=== PATIENT | female | born 1950 | race Caucasian/White ===

== ENCOUNTER 2018-03-02 08:59 | Outpatient (REF) | payer OTHER, SELFPAY ==
[2018-03-02 14:08] LABS: ALT 33 U/L (12-78); AST 20 U/L (15-37); Albumin 3.6 g/dL (3.4-5.0); Alkaline Phosphatase 69 U/L (46-116); Anion Gap 6.7 mmol/L (3-11); BUN 24 mg/dL (7-18); Bilirubin, Total 0.3 mg/dL (0.2-1.0); CO2 30.3 mmol/L (21.0-32.0); CREATININE 0.84 mg/dL (0.55-1.02); Chloride 105 mmol/L (98-107); Cholesterol 182 mg/dL (50-200); Glucose 105 mg/dL (70-100); HDL Cholesterol 47 mg/dL (40-60); LDL CHOLESTEROL 122 mg/dL (<100); Potassium 4.3 mmol/L (3.5-5.1); Sodium 142 mmol/L (136-145); Triglyceride 89 mg/dL (30-150)
== END 2018-03-02 09:19 ==
LOC: NCHCN 08:59
PROVIDERS: PCP Family Medicine; Visit Provider Family Medicine
DX: E78.5 Hyperlipidemia, unspecified (principal)
CPT/HCPCS: 80053; 80061; 83721

== ENCOUNTER 2018-03-22 01:41 | Outpatient (CLI) | payer OTHER, SELFPAY ==
--- NOTE | 2018-03-22 13:33 | DI.DEXA_ITS ---
SYMPTOMS/DIAGNOSIS: SCREENING FOR OSTEOPOROSIS IN POSTMENOPAUSAL WOMAN, Z78.0 DEXA SCAN: DEXA scan was performed according to the usual protocol. The findings for left hip scanning are T score -1.9 with left femoral neck T score -1.6. The findings for lumbar spine scanning are T score -1.4. The findings for left forearm scanning are T score -1.5. CONCLUSION: Findings consistent with osteopenia according to the WHO criteria. Please note that the lateral vertebral scanogram shows no evidence of a vertebral compression fracture.
== END 2018-03-22 02:01 ==
PROVIDERS: PCP Family Medicine; Visit Provider Family Medicine
DX: M85.88 Other specified disorders of bone density and structure, other site (principal); Z78.0 Asymptomatic menopausal state
CPT/HCPCS: 77080

== ENCOUNTER 2019-07-10 19:24 | Outpatient (REF) | payer OTHER, SELFPAY ==
[2019-07-10 21:47] LABS: ALT 38 U/L (14-59); AST 21 U/L (15-37); Albumin 3.8 g/dL (3.4-5.0); Alkaline Phosphatase 61 U/L (46-116); Anion Gap 7.4 mmol/L (3-11); BUN 24 mg/dL (7-18); Bilirubin, Total 0.3 mg/dL (0.2-1.0); CO2 26.6 mmol/L (21.0-32.0); CREATININE 0.92 mg/dL (0.55-1.02); Calcium 9.2 mg/dL (8.5-10.1); Calculated LDL 109 mg/dL (<100); Chloride 106 mmol/L (98-107); Cholesterol 176 mg/dL (<200); Glucose 97 mg/dL (74-106); HDL Cholesterol 46 mg/dL (40-60); Potassium 4.9 mmol/L (3.5-5.1); Sodium 140 mmol/L (136-145); Triglyceride 108 mg/dL (<150)
== END 2019-07-10 19:44 ==
LOC: NCHCN 19:24
PROVIDERS: PCP Family Medicine; Visit Provider Family Medicine
DX: E78.5 Hyperlipidemia, unspecified (principal)
CPT/HCPCS: 80053; 80061

== ENCOUNTER 2019-08-08 01:56 | Outpatient (CLI) | payer OTHER, SELFPAY ==
--- NOTE | 2019-08-08 | DI.MAMMO_ITS ---
EXAM: MG MAMMO SCREENING CLINICAL HISTORY: SCREENING, Z12.31 TECHNIQUE: Mammograms were interpreted according to the usual protocol including computer analysis w [employer] CAD system, tomosynthesis and C-view imaging. COMPARISON: FINDINGS: The breasts are of moderate density with fairly symmetrical distribution of fibroglandular tissue. N o dominant mass or clumped microcalcification is identified in either breast. The current examinatio n is compared with previous examinations including July 2017 and there has been no gross interval david nge in appearance comparison with previous studies. IMPRESSION: No specific evidence of malignancy at this time. Routine screening examinations are suggested at yea rly intervals in this age group according to the ACS ACR guidelines. BI-RADS Category 1 - Negative Breast Density - Category B - Scattered areas of fibroglandular density
== END 2019-08-08 02:16 ==
PROVIDERS: PCP Family Medicine; Visit Provider Family Medicine
DX: Z12.31 Encounter for screening mammogram for malignant neoplasm of breast (principal)
CPT/HCPCS: 77063; 77067

== ENCOUNTER 2020-07-10 08:32 | Outpatient (REF) | payer OTHER, SELFPAY ==
[2020-07-10 13:57] LABS: ALT 26 U/L (14-59); AST 12 U/L (15-37); Albumin 3.8 g/dL (3.4-5.0); Alkaline Phosphatase 61 U/L (46-116); Anion Gap 7.4 mmol/L (3-11); BUN 22 mg/dL (7-18); Bilirubin, Total 0.4 mg/dL (0.2-1.0); CO2 27.6 mmol/L (21.0-32.0); CREATININE 0.9 mg/dL (0.55-1.02); Calcium 9.2 mg/dL (8.5-10.1); Calculated LDL 99 mg/dL (<100); Chloride 106 mmol/L (98-107); Cholesterol 172 mg/dL (<200); Glucose 104 mg/dL (74-106); HDL Cholesterol 48 mg/dL (40-60); Potassium 4.8 mmol/L (3.5-5.1); Sodium 141 mmol/L (136-145); Total Protein 7.2 g/dL (6.4-8.2); Triglyceride 126 mg/dL (<150)
== END 2020-07-10 08:33 | disposition home or self-care (01) ==
LOC: NCHCN 08:32
PROVIDERS: PCP Family Medicine; Visit Provider Family Medicine
DX: I10 Essential (primary) hypertension (principal); E78.5 Hyperlipidemia, unspecified
CPT/HCPCS: 80053; 80061

== ENCOUNTER 2021-01-01 15:50 | Outpatient (REF) | payer MEDICARE, SELFPAY | END 2021-01-01 15:51 | disposition home or self-care (01) | LOC: NCHCN 15:50 | PROVIDERS: PCP Family Medicine; Visit Provider Family Medicine | DX: R30.0 Dysuria (principal); R35.0 Frequency of micturition | CPT/HCPCS: 87086 ==

== ENCOUNTER 2021-07-26 09:02 | Outpatient (REF) | payer MEDICARE, SELFPAY ==
[2021-07-26 15:56] LABS: ALT 32 U/L (14-59); AST 16 U/L (15-37); Albumin 3.8 g/dL (3.4-5.0); Alkaline Phosphatase 64 U/L (46-116); BUN 24 mg/dL (7-18); Bilirubin, Total 0.4 mg/dL (0.2-1.0); CREATININE 0.9 mg/dL (0.55-1.02); Calcium 9.3 mg/dL (8.5-10.1); Chloride 107 mmol/L (98-107); Glucose 113 mg/dL (74-106); Potassium 5.2 mmol/L (3.5-5.1); Sodium 141 mmol/L (136-145)
[2021-07-26 16:37] LABS: Calculated LDL 114 mg/dL (<100); Cholesterol 187 mg/dL (<200); HDL Cholesterol 45 mg/dL (40-60); Triglyceride 141 mg/dL (<150)
== END 2021-07-26 09:03 | disposition home or self-care (01) ==
LOC: NCHCN 09:02
PROVIDERS: PCP Family Medicine; Visit Provider Family Medicine
DX: I10 Essential (primary) hypertension (principal); E78.5 Hyperlipidemia, unspecified
CPT/HCPCS: 80053; 80061

== ENCOUNTER → 2021-08-06 00:20 | Outpatient (CLI) | payer MEDICARE, SELFPAY ==
--- OUTSIDE RECORDS SUMMARY | 2021-08-06 00:22 | XMS_ITS | Clinical Summary ---
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
--- OUTSIDE RECORDS SUMMARY | 2021-08-06 00:22 | XMS_ITS | Encounter Summary ---
:1950 Author Organization [facility] Address [address] [place] [address] Care Team Providers Name Role Phone Unknown, Provider Primary Care Provider Encounter Details Date Type Department Care Team Description 05/11/2017 Hospital Encounter [facility]- [place] Unknown, Provider, [facility] [address] [place] [address] [place] [address] (Work) [phone] Social History Tobacco Use Types Packs/Day Years Used Date Never Assessed Sex Assigned at Date Recorded Not on file documented as of this encounter Discharge Disposition Disposition Code Departure Means Destination Home or Self Long Term documented in this encounter Plan of Treatment Not on filedocumented as of this encounter Visit Diagnoses Not on filedocumented in this encounter Care Teams Building Superintendent Relationship Specialty Start Date End Date Unknown, Provider, PCP - General 05/11/17 documented as of this encounter
--- OUTSIDE RECORDS SUMMARY | 2021-08-06 00:23 | XMS_ITS | Encounter Summary ---
:1950 Author Organization [facility] Address [address] [place] [address] Care Team Providers Name Role Phone Unknown, Provider Primary Care Provider Encounter Details Date Type Department Care Team Description 05/11/2017 Results Only [facility]- Zee Andrews, [address] [place] [address] [address] [place], [place] [phone] (Wo rk) Social History Tobacco Use Types Packs/Day Years Used Date Never Assessed Sex Assigned at Date Recorded Not on file documented as of this encounter Plan of Treatment Not on filedocumented as of this encounter Procedures Procedure Name Priority Date/Time Associated Diagnosis [facility] SURGICAL PATHOLOGY Routine 05/11/2017 15:42 Resul ts for this EDT procedure are i n the results section. documented in this encounter Results SURGICAL PATHOLOGY (05/11/2017 15:42 EDT) Pathology Report: SURGICAL PATHOLOGY REPORT [facility] Reports generated via electronic interface contain anitra ginal data; LABORATORY however they are lacking the format of the original re port. SERVICES Caution should be taken when reading/interpreting unfo rmatted reports. Name: ? CHRIS CHI ? Accession #: ? [id number] ? : ? 1950 (Age: [age]) ??F ? Collect Date: ? 05/11/2017 ? Location: ? [facility] ? Receive Date: ? 05/12/19 18 ? Provider: ZEE CAN MD Copy to: JAZMINE GEE MD ? Final Pathologic Diagnosis: A. POLYP, ASCENDING, BIOPSY: - Fragments of tubular. Document reviewed and electronically signed by: ANDREWS LAI MD Report ??Date: 05/12/2017 12:45 By the signature above, the attending physician certif ies that he/she has personally conducted a gross and/or microscopic examin ation of the described specimens and rendered or confirmed the above diagnosi s. Specimen(s) Received: Ascending colon polyp Clinical History: H/O polyps Gross Description: ? Received in formalin labelled with proper patient identification (initials R, M) and ascending colon p olyp are two pink-mcguire tissues (each averaging 0.3 x 0.2 x 0.1 cm). Entirely submitted in 1. MARTIN Aguilar (ASCP) 05/11/2017 3:57 PM End of Report Specimen Performing Organization Address City/State/ZIP Code Phon e Number [facility] [address] [place] [address] SERVICES documented in this encounter Visit Diagnoses Not on filedocumented in this encounter Care Teams Accounts Payable Coordinator Relationship Specialty Start Date End Date Unknown, Provider, PCP - General 05/11/17 documented as of this encounter
--- OUTSIDE RECORDS SUMMARY | 2021-08-06 00:23 | XMS_ITS ---
:1950 Author Care Team Providers Name Role Phone Rehana Crawley Primary Care Provider Unavailable Allergies Code Code System Name Reaction Severity Status Onset NKDA ? Medications Name Status Start Date Stop Date ? ? AcipHex Sprinkle 10 mg capsule,delayed release Active ? Not available Take 2 capsules every day by oral route. Lexapro 10 mg tablet Active ? Not availab le Take 1 tablet every day by oral route. simvastatin 10 mg tablet Active ? Not kee ilable Take 1 tablet every day by oral route. Problems Name Status Onset Date Source ? Obesity Active ? Encounter Procedures Date Name Performed by ? ? Hysterectomy Total with Removal Cervix a nd Information not available Bso 05/01/2015 MAMMO, Screening, Digital, Bilateral [facility] - [address] [place] [address] [phone] (Work [address]) Results Lab Results None recorded. Past Encounters None recorded. Social History Tobacco Smoking Status Never Smoker Vaccine List None recorded. Plan of Care Reminders Provider Appointments None recorded. ? ? Lab None recorded. ? ? Referral None recorded. ? ? Procedures None recorded. ? ? Surgeries None recorded. ? ? Imaging None recorded. ? ? Vitals Height Weight BMI Blood Pressure 5 ft 2 in 172 lbs 31.5 kg/m2 112/68 mm[Hg]
--- NOTE | 2021-08-06 15:13 | DI.MAMMO_ITS ---
Exam(s) MAMMO SCREENING EXAM: MAMMO SCREENING CLINICAL HISTORY: SCREENING, Z12.31 TECHNIQUE: Bilateral full field digital CC and MLO mammographic images were obtained with 3D tomosyn thesis and utilizing computer aided detection (CAD). COMPARISON: Available for comparison. FINDINGS: Masses/Architectural Distortion: None seen. Microcalcifications: No suspicious pleomorphic-type are seen. Skin Thickening/Nipple Retraction: None. IMPRESSION: 1. No significant interval change with no specific features of malignancy noted. 2. Unless there is more urgent need, screening mammography is recommended, as per [place] [employer] guidelines. BI-RADS Category 1 - Negative Breast Density - Category B - Scattered areas of fibroglandular density Breast density category C or D implies that the patient has dense breast tissue. Dense breast tissue is very common and is not abnormal but dense breast tissue can make it harder to find cancer on a ma mmogram. Also, dense breast tissue may increase their breast cancer risk. This information about the result of the mammogram report was provided to the patient to raise their awareness. Use this report when you speak with the patient about their risks for breast cancer, which includes their family hist ory. At that time, you may recommend for more screening tests (Ultrasound or MRI) as they might be us eful based on their risk. A negative radiographic report should not delay biopsy if a dominant or clinically suspicious mass is present. Up to ten percent of cancers are not identified on mammography. A negative report may reinforce clinical impression. Adenosis and dense breasts may obscure an underlying neoplasm. False positive reports average 6 to 10%. Patient will receive a letter notifying them of these results.
== END ==
PROVIDERS: PCP Family Medicine; Visit Provider Family Medicine
DX: Z12.31 Encounter for screening mammogram for malignant neoplasm of breast (principal)
CPT/HCPCS: 77063; 77067

== ENCOUNTER 2022-02-20 16:41 | Emergency (ER) | payer OTHER, SELFPAY ==
[2022-02-20 16:52] VITALS: BP 142/72; PULSE 81; RESP 16; TEMP 36.9; O2SAT 99
[2022-02-20 17:46] LABS: Abs Immature Grans 0.03 10^3/uL (0.0-0.06); Absolute Basophil Count 0.07 10^3/uL (0.0-0.2); Absolute Eosinophil Count 0.19 10^3/uL (0.0-0.7); Absolute Lymphocyte Count 2.62 10^3/uL (1.2-3.4); Absolute Neutrophil Count 6.95 10^3/uL (1.2-6.7); Basophils % 0.7; Eosinophils % 1.8; HCT 44.4 % (36.0-46.0); HGB 14.4 g/dL (11.2-15.7); Immature Grans % 0.3; Lymphocytes % 25.3; MCHC 32.4 % (32.0-36.0); MCV 86 fL (80-95); MPV 9.2 fL (8.0-11.0); Monocytes % 4.8; Neutrophils % 67.1; Platelet Count 284 10^3/uL (130-400); RBC 5.14 10^6/uL (3.93-5.22); RDW 12.7 % (11.7-14.6); RDW-SD 40.3 fL; WBC 10.36 10^3/uL (4.4-10.8)
[2022-02-20 17:47] LABS: Bilirubin Negative (Negative); Blood Large (Negative); Clarity Sl Cloudy (Clear); Glucose Negative (Negative); Ketones Negative (Negative); Leukocyte Esterase Moderate (Negative); Nitrite Negative (Negative); Specific Gravity <= 1.005 (1.005-1.025); Urobilinogen 0.2 EU/dL (Up TO 0.2); pH 5.5 (5-8)
[2022-02-20 17:56] LABS: Bacteria Moderate HPF (Negative); C & S Indicated? Yes; Casts Negative LPF (Negative); Crystals Negative HPF (Negative); Epithelial Cells Few HPF (Negative); Mucus Negative (Negative); RBC 20-50 HPF (0-2)
[2022-02-20 18:01] LABS: ALT 28 U/L (14-59); AST 17 U/L (15-37); Alkaline Phosphatase 70 U/L (46-116); Anion Gap 6.5 mmol/L (3-11); BUN 20 mg/dL (7-18); Bilirubin, Total 0.2 mg/dL (0.2-1.0); CO2 27.5 mmol/L (21.0-32.0); Calcium 9.4 mg/dL (8.5-10.1); Chloride 105 mmol/L (98-107); Estimated GFR 59.12 (mL/min/1.73m2); Glucose 153 mg/dL (74-106); Potassium 3.4 mmol/L (3.5-5.1); Sodium 139 mmol/L (136-145); Total Protein 7.8 g/dL (6.4-8.2)
--- NOTE | 2022-02-20 18:19 | ED.GENADUL_ITS ---
Discharge Plan Disposition Patient Disposition: Home Condition: Stable Discharge Details Clinical Impression: Hemorrhagic cystitis Primary Care Provider: Gloria Capellan ED Provider: Rashid Valdez Home Meds and New Rx's Prescriptions: New nitrofurantoin monohyd/m-cryst [Macrobid] 100 mg capsule 100 mg PO BID Qty: 14 0RF Rx Instructions: must administer with a meal/food Continued rabeprazole 20 MG tablet,delayed release (DR/EC) 20 mg PO DAILY simvastatin 10 MG tablet 20 mg PO DAILY PROVENTIL HFA 18 GM HFA.AER.AD 2 puff Inhalation Q4H PRN Discharge Instructions Instructions: Urinary Tract Infection in Women (ED) Additional Instructions: Macrobid as directed. Please watch for new or worsening symptoms and return to the ER for any concerns. I recommend contacting your primary care provider tomorrow to make them aware of your ER visit and ongoing symptoms. Discuss outpatient reevaluation, they will be able to follow your urine culture that was done today, and if symptoms persist then further evaluation including potential pelvic exam may be indicated. Medical Decision Making This is a 72-year-old female who was recently treated with Keflex for UTI reports ongoing dysuria and hematuria, wonders if there may be some vaginal bleeding or spotting. Clinically she appears well, nontoxic, hemodynamically stable. Plan to obtain IV access, obtain CBC and CMP for further evaluation of potential leukocytosis, anemia, thrombocytopenia, etc. Will obtain urinalysis and reassess. CBC reveals no leukocytosis, anemia or thrombocytopenia. Urinalysis reveals large blood moderate leuk esterase 20-50 red cells 10-20 white cells, moderate bacteria, culture indicated. Discussed results with patient and family. Work-up certainly consistent with hemorrhagic cystitis but without a pelvic examination cannot confirm nor deny whether there is any vaginal bleeding and/or spotting. At this time patient defers pelvic examination and is comfortable treating for suspected hemorrhagic cystitis with the understanding she may need to have a pelvic examination performed if symptoms were to persist or evolve. Patient states that she plans to follow-up with her PCP later this week. Standard discharge and return precautions were provided. Patient understands, is agreeable to this plan, and has no additional questions or concerns upon discharge. This documentation was generated using [employer] system, please disregard any oddities of phrase or misspellings. Medical Records Medical records reviewed: Yes I reviewed the patient's medical records. Lab Data Lab results reviewed: Yes I reviewed the patient's lab results. Labs: 02/20/22 17:37 Urine - Reflex from Ua Urine Culture - Pending Laboratory Tests Range/Units 02/20/22 02/20/22 02/20/22 17:37 17:37 17:37 WBC (4.4-10.8) 10^3/uL 10.36 RBC (3.93-5.22) 10^6/uL 5.14 Hgb (11.2-15.7) g/dL 14.4 Hct (36.0-46.0) % 44.4 MCV (80-95) fL 86 MCH (27.0-33.0) pg 28.0 MCHC (32.0-36.0) % 32.4 RDW (11.7-14.6) % 12.7 Plt Count (130-400) 10^3/uL 284 MPV (8.0-11.0) fL 9.2 Immature Gran % 0.3 Neutrophils % 67.1 Lymphocytes % 25.3 Monocytes % 4.8 Eosinophils % 1.8 Basophils % 0.7 Nucleated RBC % (0.0-0.3) % 0.0 Absolute Neutrophils (1.2-6.7) 10^3/uL 6.95 H Absolute Lymphocytes (1.2-3.4) 10^3/uL 2.62 Absolute Monocytes (0.1-0.8) 10^3/uL 0.50 Absolute Eosinophils (0.0-0.7) 10^3/uL 0.19 Absolute Basophils (0.0-0.2) 10^3/uL 0.07 Sodium (136-145) mmol/L 139 Potassium (3.5-5.1) mmol/L 3.4 L Chloride (98-107) mmol/L 105 Carbon Dioxide (21.0-32.0) mmol/L 27.5 Anion Gap (3-11) mmol/L 6.5 BUN (7-18) mg/dL 20 H Creatinine (0.55-1.02) mg/dL 1.0 Est GFR (CKD-EPI 2020) (mL/min/1.73m2) 59.12 Glucose (74-106) mg/dL 153 H Calcium (8.5-10.1) mg/dL 9.4 Total Bilirubin (0.2-1.0) mg/dL 0.2 AST (15-37) U/L 17 ALT (14-59) U/L 28 Alkaline Phosphatase (46-116) U/L 70 Total Protein (6.4-8.2) g/dL 7.8 Albumin (3.4-5.0) g/dL 4.0 Urine Color (Yellow) Yellow Urine Clarity (Clear) Sl Cloudy Urine pH (5-8) 5.5 Ur Specific Leadore (1.005-1.025) <= 1.005 Urine Protein (Negative) mg/dL Negative Urine Ketones (Negative) mg/dL Negative Urine Blood (Negative) Large H Urine Nitrite (Negative) Negative Urine Bilirubin (Negative) Negative Urine Urobilinogen (Up TO 0.2) EU/dL 0.2 Ur Leukocyte Esterase (Negative) Moderate H Urine RBC (0-2) HPF 20-50 H Urine WBC (0-5) HPF 10-20 H Ur Epithelial Cells (Negative) HPF Few Urine Crystals (Negative) HPF Negative Urine Bacteria (Negative) HPF Moderate Urine Casts (Negative) LPF Negative Urine Mucus (Negative) Negative Ur Culture Indicated? Yes Urine Glucose (Negative) mg/dL Negative HPI General Mode of arrival: ambulatory . Date/Time Provider Initiated Documentation: 02/20/22 16:56 . Limitations to Documentation: no limitations . Information obtained by: patient and family . HPI Narrative: This is a 72-year-old female who reports a history of GERD, hyperlipidemia, a full hysterectomy, presenting to the ER reporting UTI-like symptoms that began about a week ago, dysuria, frequency, hematuria, lower abdominal discomfort, contacted her PCP and was placed on cephalexin for 7 days, reports that she finished the medication already, symptoms were improving, but then over the past 24 hours felt like symptoms returned and felt like she noticed more darker blood in her urine, prompting her to wonder if she had actual spotting or vaginal bleeding. She denies recent trauma, fever, headache, chest pain, shortness of breath, nausea or vomiting, back pain, vaginal discharge. Related Data Home Medications Medication Instructions Recorded Confirmed Proventil Hfa 2 puff inhalation Q4H PRN 03/17/17 02/20/22 rabeprazole 20 mg tablet,delayed 20 mg PO DAILY 03/17/17 02/20/22 release simvastatin 10 mg tablet 20 mg PO DAILY 03/17/17 02/20/22 nitrofurantoin 100 mg PO BID #14 caps 02/20/22 monohydrate/macrocrystals 100 mg capsule (Macrobid) Previous Rx's Medication Instructions Recorded nitrofurantoin 100 mg PO BID #14 caps 02/20/22 monohydrate/macrocrystals 100 mg capsule (Macrobid) Allergies Allergy/AdvReac Type Severity Reaction Status Date / Time No Known Allergies Allergy Unverified 02/20/22 16:55 General 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: 3 Review of Systems Constitutional Constitutional: Denies fever(s) and Denies weakness Cardiovascular Cardiovascular: Denies chest pain and Denies dyspnea Respiratory Respiratory: Denies cough and Denies dyspnea Gastrointestinal Gastrointestinal: Reports abdominal pain (Suprapubic), Denies nausea and Denies vomiting Genitourinary Genitourinary: Reports hematuria, Reports dysuria and Denies vaginal discharge Musculoskeletal Musculoskeletal: Denies back pain Integumentary/Breasts Skin/Breast: Denies rash Neurologic Neurologic: Denies weakness Hematologic/Lymphatic Hematologic/Lymphatic: Denies easy bleeding and Denies easy bruising PFSH All Active Problems Hemorrhagic cystitis (Acute) Sensorineural hearing loss, bilateral (Acute 03/31/15) Tubular adenoma of colon (Acute 05/11/17) Medical History Adenomatous colon polyp Conductive hearing loss GERD (gastroesophageal reflux disease) Hyperlipidemia Menopause Onychomycosis Surgical History Colonoscopy - [facility] (05/11/17) 2014- tubular adenoma EGD - [facility] Vaginal hysterectomy Social History Smoking/Tobacco Use Status: Former Tobacco Use Smoking risk assessment performed?: Yes Alcohol Intake: current Alcohol Intake frequency: a few times a week Alcohol type: wine Drug use: Never Substance use type: does not use Do you feel safe at home: Yes Do you feel safe in your relationship?: Yes Exam Const General: cooperative, healthy appearing, comfortable and no acute distress Orientation: alert and awake [facility] Head: normal to inspection, normocephalic and atraumatic Eyes Conjunctivae: conjunctivae normal Neck Neck: normal visual inspection, full ROM, no meningeal signs, trachea midline and supple Resp Effort & Inspection: normal respiratory effort and able to speak in complete sentences Auscultation: clear to auscultation bilaterally Cardio Rate: regular rate Rhythm: regular rhythm GI Inspection: normal to inspection Palpation: soft, not firm, no guarding and nontender Auscultation: normal bowel sounds General: deferred Back/Spine/Pelvis Back: no CVA tenderness and No back tenderness Skin General skin exam: no rashes or lesions noted Neuro General: patient alert, patient awake, moves all extremities and no focal motor deficits Cognition: normal cognition Speech: speech normal Gait: normal gait Sensory Exam: no sensory deficits noted Psych Appearance: grossly normal Mental Status: mental status grossly normal Course Vital Signs Vital signs: Vital Signs Temperature 36.9 C 02/20/22 16:52 Pulse 81 02/20/22 16:52 Respiratory Rate 16 02/20/22 16:52 Blood Pressure 142/72 H 02/20/22 16:52 Pulse Oximetry 99 02/20/22 16:52 Temperature 36.9 C 02/20/22 16:52 Temperature Source Temporal Artery Scan 02/20/22 16:52 Pulse 81 02/20/22 16:52 Respiratory Rate 16 02/20/22 16:52 Respiratory Effort 02/20/22 16:54 Blood Pressure 142/72 H 02/20/22 16:52 Blood Pressure Position Sitting 02/20/22 16:52 Pulse Oximetry 99 02/20/22 16:52 Oxygen Delivery Method Room Air 02/20/22 16:52 Oxygen Flow Rate 0 02/20/22 16:52 Pain Level 0 02/20/22 16:52 Lab/Test Results Lab/Test Results: 02/20/22 17:37 Urine - Reflex from Ua Urine Culture - Pending Laboratory Tests Range/Units 02/20/22 02/20/22 02/20/22 17:37 17:37 17:37 WBC (4.4-10.8) 10^3/uL 10.36 RBC (3.93-5.22) 10^6/uL 5.14 Hgb (11.2-15.7) g/dL 14.4 Hct (36.0-46.0) % 44.4 MCV (80-95) fL 86 MCH (27.0-33.0) pg 28.0 MCHC (32.0-36.0) % 32.4 RDW (11.7-14.6) % 12.7 Plt Count (130-400) 10^3/uL 284 MPV (8.0-11.0) fL 9.2 Immature Gran % 0.3 Neutrophils % 67.1 Lymphocytes % 25.3 Monocytes % 4.8 Eosinophils % 1.8 Basophils % 0.7 Nucleated RBC % (0.0-0.3) % 0.0 Absolute Neutrophils (1.2-6.7) 10^3/uL 6.95 H Absolute Lymphocytes (1.2-3.4) 10^3/uL 2.62 Absolute Monocytes (0.1-0.8) 10^3/uL 0.50 Absolute Eosinophils (0.0-0.7) 10^3/uL 0.19 Absolute Basophils (0.0-0.2) 10^3/uL 0.07 Sodium (136-145) mmol/L 139 Potassium (3.5-5.1) mmol/L 3.4 L Chloride (98-107) mmol/L 105 Carbon Dioxide (21.0-32.0) mmol/L 27.5 Anion Gap (3-11) mmol/L 6.5 BUN (7-18) mg/dL 20 H Creatinine (0.55-1.02) mg/dL 1.0 Est GFR (CKD-EPI 2020) (mL/min/1.73m2) 59.12 Glucose (74-106) mg/dL 153 H Calcium (8.5-10.1) mg/dL 9.4 Total Bilirubin (0.2-1.0) mg/dL 0.2 AST (15-37) U/L 17 ALT (14-59) U/L 28 Alkaline Phosphatase (46-116) U/L 70 Total Protein (6.4-8.2) g/dL 7.8 Albumin (3.4-5.0) g/dL 4.0 Urine Color (Yellow) Yellow Urine Clarity (Clear) Sl Cloudy Urine pH (5-8) 5.5 Ur Specific Leadore (1.005-1.025) <= 1.005 Urine Protein (Negative) mg/dL Negative Urine Ketones (Negative) mg/dL Negative Urine Blood (Negative) Large H Urine Nitrite (Negative) Negative Urine Bilirubin (Negative) Negative Urine Urobilinogen (Up TO 0.2) EU/dL 0.2 Ur Leukocyte Esterase (Negative) Moderate H Urine RBC (0-2) HPF 20-50 H Urine WBC (0-5) HPF 10-20 H Ur Epithelial Cells (Negative) HPF Few Urine Crystals (Negative) HPF Negative Urine Bacteria (Negative) HPF Moderate Urine Casts (Negative) LPF Negative Urine Mucus (Negative) Negative Ur Culture Indicated? Yes Urine Glucose (Negative) mg/dL Negative PAWSS Have you Been Recently Intoxicated or Drunk Within the Last 30 days?: No Have you Ever Experienced Previous Episodes of Alcohol Withdrawal?: No Have you ever Experienced Withdrawal Seizures?: No Have you ever Experienced Delirium Tremens(DT)s?: No Have you ever undergone Alcohol Rehabilitation Treatment (i.e, inpt ot outpatient treatment programs)?: No Have you ever Experienced Blackouts?: No Have you ever Combined Alcohol with other Downers within the last 90 days?: No Have you ever Combined Alcohol with any other Substance of Abuse during the last 90 days?: No Result: 0
[2022-02-20] MEDS: MacroBID 100 MG CAP PO (18:29)
[2022-02-20 18:30] VITALS: BP 142/85; PULSE 75; RESP 16; TEMP 36.9; O2SAT 96
== END 2022-02-20 18:49 | disposition home or self-care (01) ==
PROVIDERS: Emergency Provider Physician Assistant; PCP Family Medicine
DX: N30.90 Cystitis, unspecified without hematuria (principal); E78.5 Hyperlipidemia, unspecified
CPT/HCPCS: 36415; 80053; 99283; 81003; 81015; 85025; 87086; 99284

== ENCOUNTER 2022-07-26 21:53 | Outpatient (REF) | payer MEDICARE, SELFPAY ==
[2022-07-26 15:54] LABS: ALT 28 U/L (14-59); AST 15 U/L (15-37); Albumin 3.9 g/dL (3.4-5.0); Alkaline Phosphatase 62 U/L (46-116); Anion Gap 5.2 mmol/L (3-11); BUN 21 mg/dL (7-18); Bilirubin, Total 0.4 mg/dL (0.2-1.0); CO2 28.8 mmol/L (21.0-32.0); CREATININE 0.8 mg/dL (0.55-1.02); Calcium 9.1 mg/dL (8.5-10.1); Calculated LDL 122 mg/dL (<100); Chloride 106 mmol/L (98-107); Cholesterol 190 mg/dL (<200); Estimated GFR 77.27 (mL/min/1.73m2); Glucose 98 mg/dL (74-106); HDL Cholesterol 48 mg/dL (40-60); Potassium 5.1 mmol/L (3.5-5.1); Sodium 140 mmol/L (136-145); Total Protein 7.1 g/dL (6.4-8.2); Triglyceride 103 mg/dL (<150)
[2022-07-26 16:15] LABS: Vitamin D 25 Total 39.8 ng/mL (30-100)
== END 2022-07-26 21:54 | disposition home or self-care (01) ==
LOC: NCHCN 21:53
PROVIDERS: PCP Family Medicine; Visit Provider Family Medicine
DX: I10 Essential (primary) hypertension (principal); Z00.00 Encounter for general adult medical examination without abnormal findings; E78.5 Hyperlipidemia, unspecified; F32.9 Major depressive disorder, single episode, unspecified
CPT/HCPCS: 80053; 80061; 82306

== ENCOUNTER 2022-10-27 16:45 | Outpatient (REF) | payer MEDICARE, SELFPAY | END 2022-10-27 16:46 | disposition home or self-care (01) | LOC: NCHCN 16:45 | PROVIDERS: PCP Family Medicine; Visit Provider Nurse Practitioner Family | DX: R30.0 Dysuria (principal); R82.79 Other abnormal findings on microbiological examination of urine | CPT/HCPCS: 87086 ==

== ENCOUNTER 2023-07-31 09:43 | Outpatient (REF) | payer MEDICARE, SELFPAY ==
[2023-07-31 15:32] LABS: ALT 30 U/L (14-59); AST 13 U/L (15-37); Albumin 3.8 g/dL (3.4-5.0); Alkaline Phosphatase 64 U/L (46-116); Anion Gap 6.3 mmol/L (3-11); BUN 17 mg/dL (7-18); Bilirubin, Total 0.4 mg/dL (0.2-1.0); CO2 28.7 mmol/L (21.0-32.0); CREATININE 0.9 mg/dL (0.55-1.02); Calcium 9.6 mg/dL (8.5-10.1); Calculated LDL 102 mg/dL (<100); Chloride 106 mmol/L (98-107); Cholesterol 182 mg/dL (<200); Estimated GFR 66.67 (mL/min/1.73m2); Glucose 100 mg/dL (74-106); HDL Cholesterol 55 mg/dL (40-60); Potassium 5.2 mmol/L (3.5-5.1); Sodium 141 mmol/L (136-145); Triglyceride 127 mg/dL (<150); Vitamin D 25 Total 48.5 ng/mL (30-100)
== END 2023-07-31 09:44 | disposition home or self-care (01) ==
LOC: NCHCN 09:43
PROVIDERS: PCP Family Medicine; Visit Provider Family Medicine
DX: I10 Essential (primary) hypertension (principal)
CPT/HCPCS: 80053; 80061; 82306

== ENCOUNTER → 2023-09-13 01:04 | Outpatient (CLI) | payer MEDICARE, SELFPAY ==
--- NOTE | 2023-09-13 | DI.MAMMO_ITS ---
Exam(s) MAMMO SCREENING EXAM: MAMMO SCREENING CLINICAL HISTORY: Z12.31 Screening TECHNIQUE: Mammograms were interpreted according to the usual protocol including computer analysis w [employer] CAD system, tomosynthesis and C-view imaging. COMPARISON: 2015 through 2021 FINDINGS: The breasts are composed of scattered fibroglandular densities, Breast Density category B. No suspicious masses or suspicious microcalcifications are seen. No skin thickening or abnormal axillary lymph nodes are seen. There has been no significant change from prior exams. IMPRESSION: BI-RADS Category 1, Negative mammogram Yearly screening mammography is recommended. Breast Density - Category B, scattered fibroglandular densities. A negative radiographic report should not delay biopsy if a dominant or clinically suspicious mass is present. Up to ten percent of cancers are not identified on mammography. A negative report may reinforce clinical impression. Adenosis and dense breasts may obscure an underlying neoplasm. False positive reports average 6 to 10%. Patient will receive a letter notifying them of these results.
== END ==
PROVIDERS: PCP Family Medicine; Visit Provider Family Medicine
DX: Z12.31 Encounter for screening mammogram for malignant neoplasm of breast (principal)
CPT/HCPCS: 77063; 77067

== ENCOUNTER 2024-03-03 12:22 | Emergency (ER) | payer MEDICARE, SELFPAY ==
[2024-03-03 12:26] VITALS: BP 165/93; PULSE 90; RESP 18; TEMP 36; O2SAT 98
--- NOTE | 2024-03-03 12:30 | DI.RAD_ITS ---
Exam(s) XR LUMBAR SPINE COMPLETE EXAM: XR LUMBAR SPINE COMPLETE CLINICAL HISTORY: low back pain. TECHNIQUE: 2D digital imaging was performed. Five views. COMPARISON: CR CHEST 2 VIEWS PA,LAT from 08/26/2016 DX XR DEXA BONE DENSITY W/WO SUE from 03/22/2018 FINDINGS: BONES: Sacralization of L5. No fracture or destructive lesion. Vertebral body heights are maintain ed. Facet degenerative changes present at L3-4 and L4-5 DISKS: Moderate narrowing of the L4-5 disc space. The remaining intervertebral disc spaces are tonny ntained. ALIGNMENT: Levoscoliosis. L4-5 grade 1 spondylolisthesis. SOFT TISSUE: Normal. IMPRESSION: Sacralization of L5. Moderate narrowing of the L4-5 disc space. L5-S1 spondylolisthesis. No spondy lolysis. No acute findings. DATA REPOSITORY: RADIATION DOSE DELIVERED:
--- NOTE | 2024-03-03 12:30 | DI.RAD_ITS ---
Exam(s) XR HIP LT COMPLETE AP PELVIS EXAM: XR HIP LT COMPLETE AP PELVIS INDICATION: left hip pain. COMPARISON: No exams were available for comparison TECHNIQUE: 2D digital imaging was performed. Three views. FINDINGS: No evidence of fracture or dislocation. The hip joint spaces are maintained. SI joints and pubic s ymphysis are intact. IMPRESSION: No acute abnormality. DATA REPOSITORY: RADIATION DOSE DELIVERED:
--- NOTE | 2024-03-03 12:51 | ED.GENADUL_ITS ---
Discharge Plan Disposition Patient Disposition: Home Discharge Details Clinical Impression: Sciatica of left side Primary Care Provider: Gloria Capellan ED Provider: Kehinde Madrigal Home Meds and New Rx's Prescriptions: New cyclobenzaprine 10 mg tablet 10 mg PO TID PRN (Reason: muscle spasm) Qty: 15 0RF Continued losartan 25 mg tablet 25 mg PO DAILY rabeprazole 20 MG tablet,delayed release (DR/EC) 20 mg PO DAILY simvastatin 10 MG tablet 20 mg PO DAILY PROVENTIL HFA 18 GM HFA.AER.AD 2 puff Inhalation Q4H PRN Discharge Instructions Instructions: Sciatica ED Additional Instructions: As discussed you may continue to use [id number] NSAIDs as directed on packaging. You may continue to perform activities as tolerated by pain or discomfort but is recommended to eliminate any lifting bending or twisting motions until significant recovery has occurred Feel free to return the emergency department for any new or significant worsening of symptoms. Follow-up with your primary care provider for reassessment of your back pain and consideration of a physical therapy referral Referrals: Gloria Capellan [Primary Care Provider] - 5 days (For reassessment of back pain) Discharge Data Discharge Date/Time-TO BE ENTERED AT DEPARTURE: 03/03/24 14:44 HPI General Mode of arrival: ambulatory . Date/Time Provider Initiated Documentation: 03/03/24 12:23 . Limitations to Documentation: no limitations . Information obtained by: patient and RN notes reviewed . History of Present Illness 74 year old F presents to the emergency department with the chief complaint of Left hip pain, described as moderate and severe, Quality is described as sharp, Patient extremity. Patient started experiencing this week(s) (1) and it has been constant. No relieving factors improve symptom(s), No exacerbating factors reported . Patient notes denies fever/chills. Related Data Home Medications ?Medication ?Instructions ?Recorded ?Confirmed Proventil Hfa 2 puff inhalation Q4H PRN 03/17/17 03/03/24 rabeprazole 20 mg tablet,delayed 20 mg PO DAILY 03/17/17 03/03/24 release simvastatin 10 mg tablet 20 mg PO DAILY 03/17/17 03/03/24 losartan 25 mg tablet 25 mg PO DAILY 02/21/24 03/03/24 cyclobenzaprine 10 mg tablet 10 mg PO TID PRN muscle spasm #15 03/03/24 tabs Previous Rx's ?Medication ?Instructions ?Recorded cyclobenzaprine 10 mg tablet 10 mg PO TID PRN muscle spasm #15 03/03/24 tabs Allergies Allergy/AdvReac Type Severity Reaction Status Date / Time No Known Allergies Allergy Unverified 03/03/24 12:29 General Stated Complaint: Orthopedic AZRA: 4 Review of Systems Constitutional Constitutional: Denies chills and Denies fever(s) Cardiovascular Cardiovascular: Denies chest pain and Denies dyspnea on exertion Respiratory Respiratory: Denies dyspnea on exertion Gastrointestinal Gastrointestinal: Denies abdominal pain, Denies change in bowel habits and Denies diarrhea Genitourinary Genitourinary: Denies urinary incontinence Musculoskeletal Musculoskeletal: Reports as per HPI Neurologic Neurologic: Denies sensory deficit Exam Const General: cooperative and no acute distress Orientation: alert, awake and oriented x3 Neck Neck: normal visual inspection and full ROM Resp Effort & Inspection: normal respiratory effort Auscultation: clear to auscultation bilaterally Cardio Rate: regular rate Rhythm: regular rhythm Heart Sounds: S1 normal and S2 normal Back/Spine/Pelvis Thoracic/Lumbar Spine: pain with thoraco-lumbar ROM, paraspinal tenderness, thoraco-lumbar ROM limited and straight leg raise positive Pelvis: no pain with anterior-posterior compression, no pain with lateral compression, buttock tenderness on the left, no buttock swelling and sciatic notch tenderness on the left Neuro General: patient alert, patient awake and patient oriented x3 Extrem General: normal exam except as noted Left lower extremity: hip/thigh Details: tenderness Location: of the hip Location: posteriorly Course Vital Signs Vital signs: Vital Signs Temperature 36.0 C L 03/03/24 12:26 Pulse 90 03/03/24 12:26 Respiratory Rate 18 03/03/24 12:26 Blood Pressure 165/93 H 03/03/24 12:26 Pulse Oximetry 98 03/03/24 12:26 Temperature 36.0 C L 03/03/24 12:26 Pulse 90 03/03/24 12:26 Respiratory Rate 18 03/03/24 12:26 Blood Pressure 165/93 H 03/03/24 12:26 Blood Pressure Position Sitting 03/03/24 12:26 Pulse Oximetry 98 03/03/24 12:26 Oxygen Delivery Method Room Air 03/03/24 12:26 Oxygen Flow Rate 0 03/03/24 12:26 Medical Decision Making Patient here for left hip pain with radiation down left leg. Patient denies any injury or trauma denies fever chills states somewhat similar to previous episode of sciatica on the right side with different radiculopathy pattern. Review of systems otherwise unremarkable, physical exam shows tenderness to the left paraspinal tissue, left lower lumbar spine with reproducible radiculopathy and significant tenderness to left buttock and sciatic notch. Based upon the exam and review of systems I feel that patient is LOW risk for ABDOMINAL AORTIC ANEURYSM, CAUDA EQUINA SYNDROME, EPIDURAL MASS LESION, SPINAL STENOSIS, OR HERNIATED DISK CAUSING SEVERE STENOSIS, thus I consider the discharge disposition reasonable. Prior to discharge though will give patient ketorolac, lidocaine patch, and given age will perform imaging. Reviewed radiological imaging and radiologist interpretation that does show some subluxation of L5-S1. Otherwise no acute findings are noted. Given that there was no injury or trauma or known specific event that caused patient's discomfort beyond potentially some overuse with her stating that she had been traveling and moving things in her room I doubt this is acute but will refer patient to primary care for further investigation and workup if not improving. We have discussed the diagnosis and risks, and we agree with discharging home to follow-up with their primary doctor. We did discuss use of narcotics which patient was hesitant towards but she did state that Flexeril did help with sciatica in the past so did prescribe that. We also discussed returning to the Emergency Department immediately if new or worsening symptoms occur. We have discussed the symptoms which are most concerning (e.g., saddle anesthesia, urinary or bowel incontinence or retention, changing or worsening pain) that necessitate immediate return. After discussion of diagnosis and plan of care patient has no further needs, questions, or concerns and states clear understanding to return to the emergency department for any worsening symptoms. This documentation was generated using [employer] dictation system, please disregard any oddities of phrase or misspellings. Imaging Data Radiologic Study: Imaging: X-Ray Radiologist's impression: Exam(s) PROCEDURE INFORMATION: Exam: XR Left Hip Exam date and time: 03/03/2024 1:08 PM Age: 74 years old Clinical indication: Hip pain; Left hip TECHNIQUE: Imaging protocol: Radiologic exam of the left hip. Views: 2 or 3 views hip with pelvis when performed. COMPARISON: No relevant prior studies available. FINDINGS: Bones/joints: There are degenerative changes of the lower lumbar spine. No acute fracture of the pelvis identified. There is no diastasis of the sacroiliac joints or symphysis pubis. Coned-down AP and lateral views of the left hip show no acute fracture or dislocation. No periosteal reactions. Soft tissues: No soft tissue gas or foreign bodies. IMPRESSION: 1. No acute bony change identified. If the patient's pain is out of proportion then further evaluation with a CT scan may be indicated. Dictated and Authenticated by: Too Pepe MD. Radiologic Study #2: Imaging: X-Ray Radiologist's impression: Exam(s) PROCEDURE INFORMATION: Exam: XR Lumbosacral Spine Exam date and time: 03/03/2024 1:11 PM Age: 74 years old Clinical indication: Low back pain TECHNIQUE: Imaging protocol: Radiologic exam of the lumbosacral spine. Views: 4 or 5 views. COMPARISON: CR XR HIP LT COMPLETE AP PELVIS 03/03/2024 1:08 PM FINDINGS: Bones/joints: Accurate numbering of the lumbar vertebral bodies would require a full thoracic and lumbar spine series. This is not available. On this examination the last rib-bearing vertebral body is considered T12. With that numbering there is a anterior subluxation of L5 on S1 by 8 mm. No pars interarticularis defects identified. There is moderate sclerosis of the facets at the L4-L5 and L5-S1 levels. There is a mild levoscoliosis of the mid lumbar spine. The pedicles are intact. Soft tissues: No foreign bodies. IMPRESSION: 1. No acute fracture or dislocation. 2. Numbering of the lumbar vertebral bodies as noted above. There is a anterior subluxation of L5 on S1 by 8 mm without a pars interarticularis defect. This does not exclude disc pathology or foraminal stenoses. Quality:SDOH Health Related Social Needs: No Data to Display PFSH All Active Problems (Updated 03/03/24 @ 14:23 by Kehinde Madrigal NP) Sciatica of left side (Acute) Impacted cerumen, right ear (Acute) Impacted cerumen, bilateral (Acute) Sensorineural hearing loss, bilateral (Acute 03/31/15) Tubular adenoma of colon (Acute 05/11/17) Medical History Conductive hearing loss GERD (gastroesophageal reflux disease) Adenomatous colon polyp Hyperlipidemia Onychomycosis Menopause Surgical History Vaginal hysterectomy EGD - [facility] Colonoscopy - MAC (05/11/17) 2014- tubular adenoma Social History Smoking/Tobacco Use Status: Former Tobacco Use Smoking risk assessment performed?: Yes Alcohol Intake: current Alcohol Intake frequency: a few times a week Alcohol type: wine Drug use: Never Substance use type: does not use Do you feel safe at home: Yes Do you feel safe in your relationship?: Yes PAWSS Have you Been Recently Intoxicated or Drunk Within the Last 30 days?: No Have you Ever Experienced Previous Episodes of Alcohol Withdrawal?: No Have you ever Experienced Withdrawal Seizures?: No Have you ever Experienced Delirium Tremens(DT)s?: No Have you ever undergone Alcohol Rehabilitation Treatment (i.e, inpt ot outpatient treatment programs)?: No Have you ever Experienced Blackouts?: No Have you ever Combined Alcohol with other Downers within the last 90 days?: No Have you ever Combined Alcohol with any other Substance of Abuse during the last 90 days?: No Positive Blood Alcohol level on Presentation? [PCS.BAL]: No Evidence of Increased Autonomic Activity (i.e. HR>120, tremor, sweating, agitation, nausea)?: No Result: 0
[2024-03-03] MEDS: Lidocaine 5% Patch 1 PATCH TP (12:56)
[2024-03-03] MEDS: Ketorolac 15 MG/ML VIAL IM (12:56)
--- NOTE | 2024-03-03 13:58 | DI.VRAD_ITS ---
PROCEDURE INFORMATION: Exam: XR Left Hip Exam date and time: 03/03/2024 1:08 PM Age: 74 years old Clinical indication: Hip pain; Left hip TECHNIQUE: Imaging protocol: Radiologic exam of the left hip. Views: 2 or 3 views hip with pelvis when performed. COMPARISON: No relevant prior studies available. FINDINGS: Bones/joints: There are degenerative changes of the lower lumbar spine. No acute fracture of the pelvis identified. There is no diastasis of the sacroiliac joints or symphysis pubis. Coned-down AP and lateral views of the left hip show no acute fracture or dislocation. No periosteal reactions. Soft tissues: No soft tissue gas or foreign bodies. IMPRESSION: 1. No acute bony change identified. If the patient's pain is out of proportion then further evaluation with a CT scan may be indicated. Dictated and Authenticated by: Too Pepe MD. Ordering:TATY Busby MD
--- NOTE | 2024-03-03 14:04 | DI.VRAD_ITS ---
PROCEDURE INFORMATION: Exam: XR Lumbosacral Spine Exam date and time: 03/03/2024 1:11 PM Age: 74 years old Clinical indication: Low back pain TECHNIQUE: Imaging protocol: Radiologic exam of the lumbosacral spine. Views: 4 or 5 views. COMPARISON: CR XR HIP LT COMPLETE AP PELVIS 03/03/2024 1:08 PM FINDINGS: Bones/joints: Accurate numbering of the lumbar vertebral bodies would require a full thoracic and lumbar spine series. This is not available. On this examination the last rib-bearing vertebral body is considered T12. With that numbering there is a anterior subluxation of L5 on S1 by 8 mm. No pars interarticularis defects identified. There is moderate sclerosis of the facets at the L4-L5 and L5-S1 levels. There is a mild levoscoliosis of the mid lumbar spine. The pedicles are intact. Soft tissues: No foreign bodies. IMPRESSION: 1. No acute fracture or dislocation. 2. Numbering of the lumbar vertebral bodies as noted above. There is a anterior subluxation of L5 on S1 by 8 mm without a pars interarticularis defect. This does not exclude disc pathology or foraminal stenoses. Dictated and Authenticated by: Too Pepe MD. Ordering:TATY Busby MD
[2024-03-03] MEDS: Cyclobenzaprine 10 MG TAB, 3 TABS/BTL PO (14:32)
[2024-03-03 14:33] VITALS: BP 142/70; PULSE 62; RESP 16; O2SAT 97
== END 2024-03-03 14:44 | disposition home or self-care (01) ==
PROVIDERS: Emergency Provider Nurse Practitioner Family; PCP Family Medicine
DX: M54.32 Sciatica, left side (principal)
CPT/HCPCS: 96374; 99284; 72110; 73502; J1885

== ENCOUNTER 2024-08-05 18:22 | Outpatient (REF) | payer MEDICARE, SELFPAY ==
[2024-08-05 15:26] LABS: Abs Immature Grans 0.02 10^3/uL (0.0-0.06); Absolute Basophil Count 0.04 10^3/uL (0.0-0.2); Absolute Eosinophil Count 0.21 10^3/uL (0.0-0.7); Absolute Lymphocyte Count 1.75 10^3/uL (1.2-3.4); Absolute Monocyte Count 0.28 10^3/uL (0.1-0.8); Absolute Neutrophil Count 2.88 10^3/uL (1.2-6.7); Basophils % 0.8 %; Eosinophils % 4.1 %; HCT 44.5 % (36.0-46.0); HGB 14.3 g/dL (11.2-15.7); Immature Grans % 0.4 %; Lymphocytes % 33.8 %; MCH 27.6 pg (27.0-33.0); MCHC 32.1 % (32.0-36.0); MCV 86 fL (80-95); Monocytes % 5.4 %; Neutrophils % 55.5 %; RBC 5.19 10^6/uL (3.93-5.22); RDW 12.7 % (11.7-14.6); RDW-SD 39.8 fL; WBC 5.18 10^3/uL (4.4-10.8)
[2024-08-05 16:26] LABS: ALT 38 U/L (14-59); AST 16 U/L (15-37); Albumin 3.9 g/dL (3.4-5.0); Alkaline Phosphatase 69 U/L (46-116); Anion Gap 10.2 mmol/L (3-11); BUN 20 mg/dL (7-18); Bilirubin, Total 0.4 mg/dL (0.2-1.0); CO2 23.8 mmol/L (21.0-32.0); Calcium 9.5 mg/dL (8.5-10.1); Calculated LDL 97 mg/dL (<100); Chloride 105 mmol/L (98-107); Cholesterol 172 mg/dL (<200); Estimated GFR 58.39 (mL/min/1.73m2); Glucose 115 mg/dL (74-106); HDL Cholesterol 49 mg/dL (>or=50); Potassium 4.3 mmol/L (3.5-5.1); Sodium 139 mmol/L (136-145); Triglyceride 132 mg/dL (<150); Vitamin D 25 Total 54 ng/mL (30-100)
== END 2024-08-05 18:23 | disposition home or self-care (01) ==
LOC: NCHCN 18:22
PROVIDERS: PCP Family Medicine; Visit Provider Family Medicine
DX: I10 Essential (primary) hypertension (principal); E55.9 Vitamin D deficiency, unspecified; E78.5 Hyperlipidemia, unspecified; Z00.00 Encounter for general adult medical examination without abnormal findings
CPT/HCPCS: 80053; 80061; 82306; 85025

== ENCOUNTER 2024-11-28 14:17 | Outpatient (REF) | payer MEDICARE, SELFPAY | END 2024-11-28 14:18 | disposition home or self-care (01) | LOC: LBN 14:17 | PROVIDERS: PCP Family Medicine; Visit Provider Family Medicine | DX: N39.0 Urinary tract infection, site not specified (principal) | CPT/HCPCS: 87086 ==

== ENCOUNTER 2024-12-22 08:31 | Emergency (ER) | payer MEDICARE, SELFPAY ==
--- NOTE | 2024-12-22 08:30 | DI.RAD_ITS ---
Exam(s) XR ANKLE RT COMPLETE EXAM: XR ANKLE RT COMPLETE CLINICAL HISTORY: ankle pain. TECHNIQUE: 2D digital imaging was performed of the right ankle. Four images were obtained. AP, lateral and oblique views were obtained. COMPARISON: No exams were available for comparison FINDINGS: BONES: No acute fracture is present. No bony destructive lesion is seen. JOINTS: The ankle mortise is normally aligned. SOFT TISSUE: There is soft tissue swelling laterally. IMPRESSION: 1. There is no acute fracture or dislocation. 2. Soft tissue swelling around the ankle laterally. DATA REPOSITORY: RADIATION DOSE DELIVERED:
[2024-12-22 08:36] VITALS: BP 153/79; PULSE 65; RESP 18; TEMP 36.7; O2SAT 96
--- NOTE | 2024-12-22 08:46 | W.ED.GENAD ---
Discharge Plan Disposition Patient Disposition: Home Discharge Details Clinical Impression: Injury of ankle, right Primary Care Provider: Gloria Capellan ED Provider: Michael Howard Home Meds and New Rx's Prescriptions: No Action rabeprazole 20 MG tablet,delayed release (DR/EC) 20 mg PO DAILY simvastatin 10 MG tablet 20 mg PO DAILY PROVENTIL HFA 18 GM HFA.AER.AD 2 puff Inhalation Q4H PRN losartan 50 mg tablet 50 mg PO DAILY Patient Comments: TAKE ONE TABLET BY MOUTH EVERY DAY Discharge Instructions Instructions: Walking Boot Additional Instructions: As discussed, there is no fracture on your x-ray however this does not mean that you did not injure bony or tendons of the ankle. As such please use the provided crutches and walking boot to protect the joint, if you are having persistent pain or instability in the joint after 2 weeks please follow-up with your primary care to discuss indications for an MRI of the ankle. Please also follow the RICE treatment plan rest, ice, compress and elevate the joint to improve your recovery. Please follow-up with your primary care provider regarding your visit to the emergency department today. Be sure to discuss results of all test performed here today to include radiology, and laboratory testing as well as results for any pending cultures. Should your symptoms worsen, or if you develop new concerning symptoms, please return immediately emergency department for further evaluation. Stand Alone Forms: Portal Information HPI General Date/Time Provider Initiated Documentation: 12/22/24 08:33. HPI Narrative: MDM/Narrative: 74-year-old female past medical history of hypertension and hyperlipidemia, presenting for right ankle eversion injury. Significant swelling noted to the right lateral malleolus with tenderness to palpation. No neurovascular deficiencies noted on examination. Will obtain x-ray to screen for ankle injury. Foot without evidence of injury. ED course: X-ray negative, patient provided walking boot and crutches Clinical impression: Ankle injury Disposition: Home HPI: 74-year-old female presents for evaluation after an inversion injury while standing up from the couch earlier this morning. Notes pain and swelling to the right lateral aspect of her ankle. Denies any other injuries ROS: Negative besides as mentioned above Exam: Gen: A&O NAD HEENT: NCAT, EOMI, not icteric. External ears normal. No rhinorrhea. Moist mucous membranes. Neck: Supple, full range of motion, no observable masses, No meningeal sign. Lungs: No Respiratory distress. CV: RRR, no edema. Abdomen: Soft, nondistended, No rebound tenderness. MSK: Swelling and tenderness palpation along the right lateral malleolus, no pain to palpation of the navicular bone, the head of the fifth metatarsal, or head of the fibula. DP pulse 2+ on the right lower extremity Skin: No rashes, petechiae, lesions. Normal color per patient. Neuro: Normal Gait, Grossly intact. Psych: Appropriate for situation. Radiology: Exam(s) XR ANKLE RT COMPLETE EXAM: XR ANKLE RT COMPLETE CLINICAL HISTORY: ankle pain. TECHNIQUE: 2D digital imaging was performed of the right ankle. Four images were obtained. AP, lateral and oblique views were obtained. COMPARISON: No exams were available for comparison FINDINGS: BONES: No acute fracture is present. No bony destructive lesion is seen. JOINTS: The ankle mortise is normally aligned. SOFT TISSUE: There is soft tissue swelling laterally. IMPRESSION: 1. There is no acute fracture or dislocation. 2. Soft tissue swelling around the ankle laterally. Related Data Home Medications Medication Instructions Recorded Confirmed Proventil Hfa 2 puff inhalation Q4H PRN 03/17/17 12/22/24 rabeprazole 20 mg tablet,delayed 20 mg PO DAILY 03/17/17 12/22/24 release simvastatin 10 mg tablet 20 mg PO DAILY 03/17/17 12/22/24 losartan 50 mg tablet 50 mg PO DAILY 12/22/24 12/22/24 Allergies Allergy/AdvReac Type Severity Reaction Status Date / Time No Known Allergies Allergy Unverified 12/22/24 08:38 General Stated Complaint: Orthopedic AZRA: 4 Course Vital Signs Vital signs: Vital Signs Temperature 36.7 C 12/22/24 08:36 Pulse 65 12/22/24 08:36 Respiratory Rate 18 12/22/24 08:36 Blood Pressure 153/79 H 12/22/24 08:36 Pulse Oximetry 96 12/22/24 08:36 Temperature 36.7 C 12/22/24 08:36 Temperature Source Oral 11/09/25 08:36 Pulse 65 12/22/24 08:36 Respiratory Rate 18 12/22/24 08:36 Blood Pressure 153/79 H 12/22/24 08:36 Blood Pressure Position Sitting 12/22/24 08:36 Pulse Oximetry 96 12/22/24 08:36 Oxygen Delivery Method Room Air 12/22/24 08:36 Oxygen Flow Rate 0 12/22/24 08:36 Pain Level 6 12/22/24 08:36 PFSH All Active Problems (Updated 12/22/24 @ 08:48 by Michael Howard MD) Injury of ankle, right (Acute) Impacted cerumen, right ear (Acute) Impacted cerumen, bilateral (Acute) Sensorineural hearing loss, bilateral (Acute 03/31/15) Tubular adenoma of colon (Acute 05/11/17) Medical History Conductive hearing loss GERD (gastroesophageal reflux disease) Adenomatous colon polyp Hyperlipidemia Onychomycosis Menopause Surgical History Vaginal hysterectomy EGD - MAC Colonoscopy - MAC (05/11/17) 2014- tubular adenoma Social History Smoking/Tobacco Use Status: Former Tobacco Use Smoking risk assessment performed?: Yes Alcohol Intake: current Alcohol Intake frequency: a few times a week Alcohol type: wine Drug use: Never Substance use type: does not use Do you feel safe at home: Yes Do you feel safe in your relationship?: Yes
[2024-12-22] MEDS: Acetaminophen 500 MG TAB 1000 MG PO (08:50)
--- NOTE | 2024-12-31 16:52 | NUR.NOTE ---
Accessed Pt chart to print off Provider Notes for [facility] paperworkNursing Note:
--- NOTE | 2024-12-31 16:52 | NUR.NOTE ---
Accessed Pt chart to print off Provider Notes for [facility] paperwork
== END 2024-12-22 09:55 | disposition home or self-care (01) ==
LOC: ER 08:51
PROVIDERS: Emergency Provider General Practice; PCP Family Medicine
DX: S99.811A Other specified injuries of right ankle, initial encounter (principal); X58.XXXA Exposure to other specified factors, initial encounter
CPT/HCPCS: 99283 ×2; 73610

== ENCOUNTER 2025-01-16 02:36 | Emergency (ER) | payer MEDICARE, SELFPAY ==
[2025-01-16] VITALS (24 sets, daily range): BP systolic 154–170; BP diastolic 60–103; PULSE 68–99; RESP 9–24; TEMP 36.8; O2SAT 93–97
--- NOTE | 2025-01-16 02:30 | RT.EKG_ITS ---
APPROVED REPORT Exam: Resting ECG Reason for Exam: dizziness Patient Location: E HR:88 bpm ECG Measurements Heart Rate 88 AXIS SC 191 P 125 QRSd 93 QRS 158 QT 361 T 121 QTc 438 Conclusion Right and left arm electrode reversal, interpretation assumes no reversal Sinus rhythm...normal P axis, V-rate 60- 99 Left posterior fascicular block...trm axis(110,210), init force sup Abnormal T, consider ischemia, lateral leads...T <-0.20mV, I aVL V5 V6 Physician: no stemi
[2025-01-16 03:11] LABS: Abs Immature Grans 0.03 10^3/uL (0.0-0.06); HCT 40.8 % (36.0-46.0); HGB 13.5 g/dL (11.2-15.7); Immature Grans % 0.3 %; MCH 27.9 pg (27.0-33.0); MCHC 33.1 % (32.0-36.0); MCV 84 fL (80-95); MPV 9.2 fL (8.0-11.0); Platelet Count 268 10^3/uL (130-400); RBC 4.84 10^6/uL (3.93-5.22); RDW 13.0 % (11.7-14.6); RDW-SD 39.8 fL; WBC 9.12 10^3/uL (4.4-10.8)
[2025-01-16] MEDS: Meclizine 25 MG TAB 50 MG PO ×2 (03:23→05:08)
[2025-01-16] MEDS: Ondansetron 4 MG/2 ML VIAL IVP (03:23)
[2025-01-16] MEDS: Normal Saline 500 ML IV (03:24)
[2025-01-16] MEDS: ACETAMINOPHEN 1,000 MG/100 ML BAG 400 MG IVPB (03:24)
[2025-01-16 03:27] LABS: INR 1.0 (0.9-1.1); PTT Activated 26.5 sec (20.6-30.2); Prothrombin Time 10.1 sec (9.1-11.1)
[2025-01-16 03:30] LABS: ALT 29 U/L (10-49); AST 20 U/L (<34); Albumin 4.3 g/dL (3.2-5.0); Alkaline Phosphatase 60 U/L (46-116); Anion Gap 9.3 mmol/L (3-11); BUN 21 mg/dL (9-23); Bilirubin, Total 0.20 mg/dL (0.2-1.2); CO2 22.7 mmol/L (20.0-31.0); Calcium 9.0 mg/dL (8.3-10.6); Chloride 105 mmol/L (98-107); Glucose 144 mg/dL (74-106); Potassium 4.1 mmol/L (3.5-5.1); Sodium 137 mmol/L (136-145); Total Protein 6.9 g/dL (5.7-8.2)
[2025-01-16 03:33] LABS: TSH (W/Ref FT4) 3.06 uIU/mL (0.55-4.78)
[2025-01-16 03:34] LABS: Troponin I < 3 ng/L (<35)
[2025-01-16] MEDS: Normal Saline - Diluent 50 ML VIAL IJ (03:59)
[2025-01-16] MEDS: Normal Saline Flush 10 ML SYR IVP (04:00)
[2025-01-16] MEDS: Omnipaque 350 MG/ML 100 ML BTL IJ (04:00)
--- NOTE | 2025-01-16 04:02 | W.ED.GENAD ---
Discharge Plan Disposition Patient Disposition: Home Condition: Good Discharge Details Clinical Impression: Thyroid nodule, Peripheral vertigo Primary Care Provider: Gloria Capellan ED Provider: Maco Oden Home Meds and New Rx's Prescriptions: New meclizine 25 mg tablet 25 mg PO TID Qty: 30 0RF No Action rabeprazole 20 MG tablet,delayed release (DR/EC) 20 mg PO DAILY simvastatin 10 MG tablet 20 mg PO DAILY PROVENTIL HFA 18 GM HFA.AER.AD 2 puff Inhalation Q4H PRN losartan 50 mg tablet 50 mg PO DAILY Patient Comments: TAKE ONE TABLET BY MOUTH EVERY DAY Discharge Instructions Instructions: Thyroid nodules, Vertigo ED Additional Instructions: At this time your workup is returned normal, and there is no evidence of stroke or bleed. Your symptoms appear consistent with peripheral vertigo. Please take the meclizine I prescribed to help with the dizziness. Please drink plenty of fluids, stay well-hydrated, avoid excessive salt or caffeine. Incidentally, a few thyroid nodules were noted on your CT scan. While it is unlikely that this is cancer, it is important to follow-up closely with your primary care provider for formal nonemergent ultrasound, and reassessment. If you notice any worsening of your symptoms, or any new symptoms such as vomiting, diarrhea, fever, chills, shortness of breath, chest pain, numbness, weakness, or fainting , please return immediately to the emergency department for reevaluation. Please follow up with your primary care provider as soon as possible for reassessment and reevaluation. As always, it was a pleasure participating in your medical care today. Stand Alone Forms: Portal Information Referrals: Gloria Capellan [Primary Care Provider, Medicine] [facility] General Date/Time Provider Initiated Documentation: 01/16/25 02:55. HPI Narrative: This is a 74-year-old female with a past medical history of high cholesterol, GERD, hypertension, who presents today for evaluation of dizziness. Patient states that while she was doing exercises at around 6 PM she had a sudden onset room spinning sensation. It felt like the room was spinning to the left. Symptoms persisted throughout the night, and then about 3 hours prior to arrival she developed mild headache and left head/neck achiness. Dizziness continued. She denies chest pain or shortness of breath. She denies falls or syncope. She denies trauma to the head. No other complaints at this time. No numbness or tingling. No recent falls. No other complaints. No tinnitus. No medication changes. Related Data Home Medications ?Medication ?Instructions ?Recorded ?Confirmed Proventil Hfa 2 puff inhalation Q4H PRN 03/17/17 01/16/25 rabeprazole 20 mg tablet,delayed 20 mg PO DAILY 03/17/17 01/16/25 release simvastatin 10 mg tablet 20 mg PO DAILY 03/17/17 01/16/25 losartan 50 mg tablet 50 mg PO DAILY 12/22/24 01/16/25 meclizine 25 mg tablet 25 mg PO TID #30 tabs 01/16/25 Previous Rx's ?Medication ?Instructions ?Recorded meclizine 25 mg tablet 25 mg PO TID #30 tabs 01/16/25 Allergies Allergy/AdvReac Type Severity Reaction Status Date / Time No Known Allergies Allergy Unverified 01/16/25 02:54 General Stated Complaint: Dizzy/Sync AZRA: 3 Exam Narrative Exam Narrative: 1.Const: Well-nourished, Well-developed, appearing stated age 2.Eyes: PERRL, no conjunctival injection, and symmetrical lids. 3.ENT: Atraumatic external nose and ears. Moist MM. Neck: Symmetric, trachea midline, No thyromegaly. Patient demonstrates good movement of cervical neck. There is no nuchal rigidity, no nuchal tenderness. Patient is able to flex the neck without any difficulty or significant pain. Negative Kernig's and Brudzinski sign. 4.CVS: +S1/S2, Peripheral pulses 2+ and equal in all extremities. Brisk capillary refill in all extremities. 5.RESP: Unlabored respiratory effort. Clear to auscultation bilaterally. No wheezes rales or rhonchi 6.GI: Soft, Nontender/Nondistended, No hepatosplenomegaly. No guarding or rebound. 7.MSK: Normocephalic/Atraumatic, Extremities w/o deformity or ttp No cyanosis or clubbing, Normal movement of all extremities 8.Skin: Warm, Dry. No rashes or lesions. 9.Neuro: measurement supervisor II-XII grossly intact. Sensation grossly intact, no focal neurologic deficits. All 6 cardinal planes of vision are fully intact. No evidence of rotatory or vertical nystagmus. Patient does have evidence of horizontal unidirectional left sided fatigable nystagmus. Positive head impulse test. No change with test of skew. The patient demonstrated a normal fmkeoq-wjuj-yegcli, good dexterity. There was no evidence of dysdiadochokinesia. Patient was able to ambulate without difficulty. There was no wide-based gait. Romberg testing was normal. Qprg-sp-bbyq testing was normal. Sensation was intact bilaterally as well as muscle strength bilaterally for all extremities. Patient was able to verbalize butter cup with no slurring, or miss pronunciation. 10.Psych: (AAO) x3. Appropriate mood and affect Course Vital Signs Vital signs: Vital Signs Temperature 36.8 C 01/16/25 02:41 Pulse 82 01/16/25 02:41 Respiratory Rate 20 01/16/25 02:41 Blood Pressure 167/80 H 01/16/25 02:41 Pulse Oximetry 97 01/16/25 02:41 Temperature 36.8 C 01/16/25 02:41 Temperature Source Oral 01/16/25 02:41 Pulse 78 01/16/25 03:10 Pulse 81 01/16/25 03:10 Respiratory Rate 10 L 01/16/25 03:10 Respiratory Effort Normal, Non-Labored 01/16/25 02:49 Respiratory Depth Normal 01/16/25 02:49 Respiratory Pattern Normal 01/16/25 02:49 Blood Pressure 166/89 H 01/16/25 02:59 Blood Pressure Mean 112 01/16/25 02:59 Blood Pressure Position Supine 01/16/25 02:41 Pulse Oximetry 96 01/16/25 03:10 Oxygen Delivery Method Room Air 01/16/25 02:41 Oxygen Flow Rate 0 01/16/25 02:41 Pain Level 6 01/16/25 02:41 Lab/Test Results Lab/Test Results: Laboratory Tests Range/Units 01/16/25 02:59 WBC (4.4-10.8) 10^3/uL 9.12 RBC (3.93-5.22) 10^6/uL 4.84 Hgb (11.2-15.7) g/dL 13.5 Hct (36.0-46.0) % 40.8 MCV (80-95) fL 84 MCH (27.0-33.0) pg 27.9 MCHC (32.0-36.0) % 33.1 RDW (11.7-14.6) % 13.0 Plt Count (130-400) 10^3/uL 268 MPV (8.0-11.0) fL 9.2 Immature Gran % % 0.3 Neutrophils % % 83.5 Lymphocytes % % 12.4 Monocytes % % 2.9 Eosinophils % % 0.4 Basophils % % 0.5 Nucleated RBC % (0.0-0.3) % 0.0 Absolute Neutrophils (1.2-6.7) 10^3/uL 7.61 H Absolute Lymphocytes (1.2-3.4) 10^3/uL 1.13 L Absolute Monocytes (0.1-0.8) 10^3/uL 0.26 Absolute Eosinophils (0.0-0.7) 10^3/uL 0.04 Absolute Basophils (0.0-0.2) 10^3/uL 0.05 PT (9.1-11.1) sec 10.1 INR (0.9-1.1) 1.0 APTT (20.6-30.2) sec 26.5 Sodium (136-145) mmol/L 137 Potassium (3.5-5.1) mmol/L 4.1 Chloride (98-107) mmol/L 105 Carbon Dioxide (20.0-31.0) mmol/L 22.7 Anion Gap (3-11) mmol/L 9.3 BUN (9-23) mg/dL 21 Creatinine (0.55-1.02) mg/dL 0.68 Est GFR (CKD-EPI 2020) (mL/min/1.73m2) 83.90 Glucose (74-106) mg/dL 144 H Calcium (8.3-10.6) mg/dL 9.0 Total Bilirubin (0.2-1.2) mg/dL 0.20 AST (<34) U/L 20 ALT (10-49) U/L 29 Alkaline Phosphatase (46-116) U/L 60 Troponin I (<35) ng/L < 3 Total Protein (5.7-8.2) g/dL 6.9 Albumin (3.2-5.0) g/dL 4.3 TSH (0.55-4.78) uIU/mL 3.06 Medical Decision Making This is a 74-year-old female with a past medical history of high cholesterol, GERD, hypertension, who presents today for evaluation of dizziness. Patient states that while she was doing exercises at around 6 PM she had a sudden onset room spinning sensation. It felt like the room was spinning to the left. Symptoms persisted throughout the night, and then about 3 hours prior to arrival she developed mild headache and left head/neck achiness. Dizziness continued. She denies chest pain or shortness of breath. She denies falls or syncope. She denies trauma to the head. No other complaints at this time. No numbness or tingling. No recent falls. No other complaints. No tinnitus. No medication changes. Physical exam demonstrates unidirectional left-sided fatigable horizontal nystagmus. Positive head impulse test to the left, negative test of skew. Symptoms appear clinically inconsistent with cerebellar stroke. Symptoms appear more concerning and consistent with peripheral vertigo. However due to the patient's mild headache, age, and risk factors we will get CT scan to evaluate for mass, bleed or stroke. We will give meclizine, gently rehydrate, monitor closely and reassess. Patient has no temporal artery tenderness. 4:48 AM On reassessment patient is feeling much better. Dizziness is notably improved. Patient is able to ambulate well. Patient symptoms are consistent with peripheral vertigo at this time. CT/CTA negative for acute process. However there is evidence of multiple thyroid nodules. Will recommend outpatient follow-up of this and ultrasound. Patient will be given meclizine for home use. Headache notably improved. Patient feels comfortable going home. No evidence to suggest cerebellar stroke at this time. Discussed red flags for which to return. I have extensively reviewed the treatment plan and discharge instructions with the patient and their family. I have addressed all patient concerns at this time. The patient and family was made aware of what symptoms to monitor for that would warrant a return to the emergency department. Discussed the plan with the patient and family, they demonstrate verbal understanding and agreement with our assessment and plan at this time. The documentation in this chart was dictated using [employer] dictation software. Please excuse any dictation errors. FINDINGS: ANTERIOR CIRCULATION: Right internal carotid artery: Intracranial segment is patent with no significant stenosis or occlusion. No aneurysm. Right middle cerebral artery: No occlusion or significant stenosis. No aneurysm. Right anterior cerebral artery: No occlusion or significant stenosis. No aneurysm. Left internal carotid artery: Mild calcified atherosclerosis. Intracranial segment is patent with no significant stenosis. No aneurysm. Left middle cerebral artery: No occlusion or significant stenosis. No aneurysm. Left anterior cerebral artery: The left KYE A1 segment is hypoplastic. No occlusion or significant stenosis. No aneurysm. POSTERIOR CIRCULATION: Right vertebral artery: No occlusion or significant stenosis. No aneurysm. Left vertebral artery: No occlusion or significant stenosis. No aneurysm. Basilar artery: No occlusion or significant stenosis. No aneurysm. Right posterior cerebral artery: No occlusion or significant stenosis. No aneurysm. Left posterior cerebral artery: No occlusion or significant stenosis. No aneurysm. HEAD: Brain: There is mild diffuse cerebral atrophy present, consistent with this patient's age. There is patchy low attenuation in the white matter of both cerebral hemispheres which is a nonspecific finding but most likely secondary to mild chronic microvascular ischemic disease. No evidence of acute ischemia. No hemorrhage. Cerebral ventricles: Normal. No ventriculomegaly. Bones: Unremarkable. No acute fracture. Paranasal sinuses: Visualized sinuses are normal. No fluid levels. Mastoid air cells: Visualized mastoids are normal. No mastoid effusion. Soft tissues: Unremarkable. IMPRESSION: 1. No acute intracranial abnormality. No evidence of acute ischemia. 2. No large vessel occlusion. FINDINGS: Right common carotid artery: No stenosis. No dissection or occlusion. Right internal carotid artery: Mild calcified atherosclerosis of the proximal ICA. No stenosis of the extracranial segment. No dissection or occlusion. Right external carotid artery: No occlusion or stenosis of the origin. Left common carotid artery: No stenosis. No dissection or occlusion. Left internal carotid artery: Mild calcified atherosclerosis causes mild, less than 50% stenosis of the proximal ICA. No dissection or occlusion. Left external carotid artery: No occlusion or stenosis of the origin. Right vertebral artery: No stenosis. No dissection or occlusion. Left vertebral artery: The left vertebral artery is dominant. No stenosis. No dissection or occlusion. Thyroid: The left thyroid lobe is enlarged. There are multiple nonspecific left thyroid lobe lowattenuation lesions, for example measuring 2.5 x 1.7 cm on image 11:30. Soft tissues: Normal. No significant soft tissue swelling. Bones/joints: No acute fracture. There is a nonspecific mild reversal of the normal cervical lordosis. IMPRESSION: 1. Mild, less than 50% stenosis of the proximal left extracranial ICA. 2. Left thyroid lobe is enlarged with multiple nonspecific low-attenuation lesions. Suggest follow-up nonemergent thyroid ultrasound. REFERENCES: NASCET CRITERIA. The degree of stenosis in the cervical segment of the internal carotid artery is based on NASCET criteria. Normal is no stenosis. Mild is less than 50% stenosis. Moderate is 50- 69% stenosis. Severe is 70% to 99% stenosis. Total occlusion is no detectable patent lumen. Thank you for allowing us to participate in the care of your patient. Dictated and Authenticated by: Rigoberto Ramirez MD 01/16/2025 4:31 AM Eastern Time ([place] & [place]) PFS All Active Problems (Updated 01/16/25 @ 04:51 by Maco Oden DO) Peripheral vertigo (Acute) Thyroid nodule (Acute) Injury of ankle, right (Acute) Impacted cerumen, right ear (Acute) Impacted cerumen, bilateral (Acute) Sensorineural hearing loss, bilateral (Acute 03/31/15) Tubular adenoma of colon (Acute 05/11/17) Medical History Conductive hearing loss GERD (gastroesophageal reflux disease) Adenomatous colon polyp Hyperlipidemia Onychomycosis Menopause Surgical History Vaginal hysterectomy EGD - [facility] Colonoscopy - [facility] (05/11/17) 2014- tubular adenoma Social History Smoking/Tobacco Use Status: Former Tobacco Use Smoking risk assessment performed?: Yes Alcohol Intake: current Alcohol Intake frequency: a few times a week Alcohol type: wine Drug use: Never Substance use type: does not use Housing: house Do you feel safe at home: Yes Do you feel safe in your relationship?: Yes
--- NOTE | 2025-01-16 04:14 | DI.CT_ITS ---
Exam(s) CT BRAIN NECK CTA EXAM: CT BRAIN NECK CTA CLINICAL HISTORY: headache, dizzy, r/o stroke, bleed/mass. TECHNIQUE: Imaging Protocol: Axial CT angiography was performed with multi- slice acquisition and multi-planar and/or 3D reconstructions. CONTRAST MATERIAL: Intravenous: Omnipaque 350 Contrast volume:70 mL COMPARISON: No exams were available for comparison FINDINGS: CTA Neck W: Aortic arch anatomy: The aortic arch anatomy is conventional and there is no significant stenosis at the origin of the great vessels off of the aortic arch. No intimal flap evident. Anterior circulation: Both common carotid arteries ascend with normal luminal diameters. There is both calcified and noncalcified plaque the level the carotid bulbs and proximal ICAs bilaterally. Less than 50 percent stenosis bilaterally at these levels. The internal carotid arteries in the upper neck are patent bilaterally as well as in the skull base-carotid canals. Posterior circulation: Both vertebral arteries originate in conventional fashion off of the subclavian arteries. The left vertebral artery is dominant. It is main contributor to the formation of the basilar artery at the skull base. The thinner right vertebral artery terminates as the right posterior inferior cerebellar artery OTHER: Grossly enlarged left thyroid lobe and left side of the isthmus which contains multiple large nodules. Follow-up ultrasound recommended. The right thyroid lobe normal size CTA Brain W: Anterior circulation: Both internal carotid arteries are patent in the skull base-carotid canals as well as within the cavernous sinuses. The supraclinoid aspects of the ICAs are patent. The right A1 segment is dominant. The left A1 segment is atretic. Both anterior cerebral arteries are patent. There is no aneurysm at the level the anterior communicating artery. Both middle cerebral arteries are patent with no evidence of significant stenosis nor intraluminal thrombus. There also no aneurysms of these vessels. Posterior circulation: The basilar artery ascends in the midline without significant stenosis. Distally it gives off superior cerebellar arteries. Above this level the bilateral posterior cerebral arteries are predominantly fed by posterior communicating arteries on both sides the evgqrr-ah-Geoonp. There is no evidence of aneurysm at the tip of the basilar artery nor elsewhere in the izjerd-qh-Jgqbow. CT BRAIN: There is no evidence of intracranial hemorrhage, mass effect, or shift of midline structures. There are no extra-axial fluid collections. Ventricles are not enlarged or shifted. There are no ring enhancing lesions in the brain and no abnormal meningeal enhancement. IMPRESSION: 1. There is partially calcified plaque at the level the carotid bulbs and proximal ICAs on both sides the neck. Amount of stenosis is less than 50 percent bilaterally at these levels. No dissection 2. The left vertebral artery is dominant, as described above. 3. Patent intracranial arteries. 4. No acute intracranial findings. 5. If clinically indicated further study with MRI can be performed. Preliminary virtual Radiology report was reviewed. RADIATION DOSE DELIVERED: 2,054.25mGy.cm Total DLP DATA REPOSITORY: All CT scans at this facility are submitted to the National Radiology Data Registry (NRDR) Dose Index Registry (DIR) with the [employer] (ACR). RADIATION OPTIMIZATION: All CT scans at this facility use at least one of these dose optimization techniques: automated exposure control; mA and/or kV adjustment per patient size (includes targeted exams where dose is matched to clinical indication); or iterative reconstruction.
--- NOTE | 2025-01-16 04:32 | DI.VRAD_ITS ---
PROCEDURE INFORMATION: Exam: CTA Head Without And With Contrast, Arteriography Exam date and time: 01/16/2025 3:35 AM Age: 74 years old Clinical indication: Stroke-like symptoms; Dizziness/giddiness and headache; Additional info: Headache, dizzy, R/O stroke, bleed/mass TECHNIQUE: Imaging protocol: Computed tomographic angiography of the head without and with contrast. Exam focused on the arteries. 3D rendering (Not supervised by radiologist): MIP and/or 3D reconstructed images were created by the technologist. Radiation optimization: All CT scans at this facility use at least one of these dose optimization techniques: automated exposure control; mA and/or kV adjustment per patient size (includes targeted exams where dose is matched to clinical indication); or iterative reconstruction. Contrast material: [id number]; Contrast volume: 70 ml; Contrast route: INTRAVENOUS (IV); Other technique: STROKE PROTOCOL was implemented. COMPARISON: No relevant prior studies available. FINDINGS: ANTERIOR CIRCULATION: Right internal carotid artery: Intracranial segment is patent with no significant stenosis or occlusion. No aneurysm. Right middle cerebral artery: No occlusion or significant stenosis. No aneurysm. Right anterior cerebral artery: No occlusion or significant stenosis. No aneurysm. Left internal carotid artery: Mild calcified atherosclerosis. Intracranial segment is patent with no significant stenosis. No aneurysm. Left middle cerebral artery: No occlusion or significant stenosis. No aneurysm. Left anterior cerebral artery: The left KYE A1 segment is hypoplastic. No occlusion or significant stenosis. No aneurysm. POSTERIOR CIRCULATION: Right vertebral artery: No occlusion or significant stenosis. No aneurysm. Left vertebral artery: No occlusion or significant stenosis. No aneurysm. Basilar artery: No occlusion or significant stenosis. No aneurysm. Right posterior cerebral artery: No occlusion or significant stenosis. No aneurysm. Left posterior cerebral artery: No occlusion or significant stenosis. No aneurysm. HEAD: Brain: There is mild diffuse cerebral atrophy present, consistent with this patient's age. There is patchy low attenuation in the white matter of both cerebral hemispheres which is a nonspecific finding but most likely secondary to mild chronic microvascular ischemic disease. No evidence of acute ischemia. No hemorrhage. Cerebral ventricles: Normal. No ventriculomegaly. Bones: Unremarkable. No acute fracture. Paranasal sinuses: Visualized sinuses are normal. No fluid levels. Mastoid air cells: Visualized mastoids are normal. No mastoid effusion. Soft tissues: Unremarkable. IMPRESSION: 1. No acute intracranial abnormality. No evidence of acute ischemia. 2. No large vessel occlusion. ASSESSMENT: ASPECTS (Dwarf Stroke Program Early CT Score) is 10. PROCEDURE INFORMATION: Exam: CTA Neck With Contrast Exam date and time: 01/16/2025 3:35 AM Age: 74 years old Clinical indication: Stroke-like symptoms; Dizziness/giddiness and headache; Additional info: Headache, dizzy, R/O stroke, bleed/mass TECHNIQUE: Imaging protocol: Computed tomographic angiography of the neck with contrast. Exam focused on the cervical segments of the vasculature. 3D rendering (Not supervised by radiologist): MIP and/or 3D reconstructed images were created by the technologist. Radiation optimization: All CT scans at this facility use at least one of these dose optimization techniques: automated exposure control; mA and/or kV adjustment per patient size (includes targeted exams where dose is matched to clinical indication); or iterative reconstruction. Contrast material: [id number]; Contrast volume: 70 ml; Contrast route: INTRAVENOUS (IV); COMPARISON: No relevant prior studies available. FINDINGS: Right common carotid artery: No stenosis. No dissection or occlusion. Right internal carotid artery: Mild calcified atherosclerosis of the proximal ICA. No stenosis of the extracranial segment. No dissection or occlusion. Right external carotid artery: No occlusion or stenosis of the origin. Left common carotid artery: No stenosis. No dissection or occlusion. Left internal carotid artery: Mild calcified atherosclerosis causes mild, less than 50% stenosis of the proximal ICA. No dissection or occlusion. Left external carotid artery: No occlusion or stenosis of the origin. Right vertebral artery: No stenosis. No dissection or occlusion. Left vertebral artery: The left vertebral artery is dominant. No stenosis. No dissection or occlusion. Thyroid: The left thyroid lobe is enlarged. There are multiple nonspecific left thyroid lobe low-attenuation lesions, for example measuring 2.5 x 1.7 cm on image 11:30. Soft tissues: Normal. No significant soft tissue swelling. Bones/joints: No acute fracture. There is a nonspecific mild reversal of the normal cervical lordosis. IMPRESSION: 1. Mild, less than 50% stenosis of the proximal left extracranial ICA. 2. Left thyroid lobe is enlarged with multiple nonspecific low-attenuation lesions. Suggest follow-up nonemergent thyroid ultrasound. REFERENCES: NASCET CRITERIA. The degree of stenosis in the cervical segment of the internal carotid artery is based on NASCET criteria. Normal is no stenosis. Mild is less than 50% stenosis. Moderate is 50-69% stenosis. Severe is 70% to 99% stenosis. Total occlusion is no detectable patent lumen. Dictated and Authenticated by: Rigoberto Ramirez MD. Orderin Akshat Dewey MD
[2025-01-16 04:34] LABS: Troponin I 5 ng/L (<35)
== END 2025-01-16 06:17 | disposition home or self-care (01) ==
PROVIDERS: Emergency Provider Student in an Organized Health Care Education/Training Program; PCP Family Medicine
DX: E04.1 Nontoxic single thyroid nodule (principal); R42 Dizziness and giddiness
CPT/HCPCS: 99284; 99285; 36415; 96375; 70496; 70498; 80053; 93005; 96361; 96365; 84443; 84484; 85025; 85610; 85730; 93010; J0131; J2405; J3490

== ENCOUNTER → 2025-02-12 11:17 | Outpatient (CLI) | payer MEDICARE, SELFPAY ==
--- NOTE | 2025-02-12 | DI.US_ITS ---
Exam(s) US THYROID EXAM: US THYROID CLINICAL HISTORY: E04.1 Nontoxic single thyroid nodule. TECHNIQUE: Ultrasound thyroid performed using standard protocol. COMPARISON: CT CT BRAIN NECK CTA from 01/16/2025 FINDINGS: ISTHMUS: 4 mm RIGHT LOBE: Size: 4.7 x 1.9 x 1.9 cm Echogenicity: Heterogeneous Vascularity: Normal. Nodules: No discrete nodules. LEFT LOBE: Size: 6.0 x 3.4 x 3.1 cm Echogenicity: Heterogeneous. Vascularity: Normal. Nodules: The left lobe is occupied by innumerable nodules. 1. Mixed cystic and solid upper pole nodule measuring 2.5 x 1.2 x 2.0 with punctate echogenic foci, TR 4. FNA recommended 2. Large mixed solid and cystic nodule measuring 4.3 x 2.9 x 2.7 cm occupying the mid to lower pole. It is taller than wide with indistinct margins. No echogenic foci are visible. TR 4. FNA recommended. 3. 3.3 x 1.1 x 1.5 cm medial lower pole nodule is mixed cystic and solid, ill- defined margins without echogenic foci, TR 2. OTHER FINDINGS: None. IMPRESSION: Large left lobe thyroid nodules, TR 4. FNA recommended. DATA REPOSITORY:
== END ==
LOC: DI 11:17
PROVIDERS: PCP Family Medicine; Visit Provider Family Medicine
DX: E04.1 Nontoxic single thyroid nodule (principal)
CPT/HCPCS: 76536